=== PATIENT | male | born 1950 | race Caucasian/White ===

== ENCOUNTER 2016-05-29 08:00 | Outpatient (RCR) | payer BC ==
[~2016-05-29 08:00] MED LIST: AMBIEN5 MG PO; PRILOSEC 20MG20 MG PO
== END 2016-07-08 | disposition home or self-care (01) ==
LOC: WSC → WSPT 08:00
DX: M54.2 Cervicalgia (principal)

== ENCOUNTER 2018-05-24 16:15 | Outpatient (RCR) | payer MEDICARE, OTHER | END 2018-05-25 | disposition still patient (30) | LOC: WSPT | DX: M75.102 Unspecified rotator cuff tear or rupture of left shoulder, not specified as traumatic (principal) | CPT/HCPCS: G8984-GP; G8985-GP ==

== ENCOUNTER 2018-05-26 09:12 | Outpatient (RCR) | payer MEDICARE, OTHER | END 2018-05-29 16:11 | disposition home or self-care (01) | LOC: WSC 09:12 | DX: M75.102 Unspecified rotator cuff tear or rupture of left shoulder, not specified as traumatic (principal) ==

== ENCOUNTER 2021-02-10 08:15 | Outpatient (RCR) | payer MEDICARE, OTHER | END 2021-02-21 | disposition still patient (30) | LOC: PT.GENESIS | DX: M54.2 Cervicalgia (principal); M25.512 Pain in left shoulder ==

== ENCOUNTER 2021-03-17 08:15 | Outpatient (RCR) | payer MEDICARE, OTHER | END 2021-03-24 | LOC: PT.GENESIS | DX: M54.2 Cervicalgia (principal); M25.512 Pain in left shoulder ==

== ENCOUNTER → 2021-03-20 | Outpatient (CLI) | payer MEDICARE, OTHER | LOC: ZCOL.LAB 16:26 | DX: U07.1 COVID-19 (principal) ==

== ENCOUNTER → 2021-12-22 | Outpatient (RCR) | payer MEDICARE, OTHER | END | disposition home or self-care (01) | LOC: PT.GENESIS | DX: M79.651 Pain in right thigh (principal) ==

== ENCOUNTER → 2023-12-20 | Outpatient (CLI) | payer MEDICARE, BC | LOC: COL.RAD 07:33 | DX: Z12.2 Encounter for screening for malignant neoplasm of respiratory organs (principal); Z87.891 Personal history of nicotine dependence ==